=== PATIENT | male | born 1970 | race Caucasian/White ===

== ENCOUNTER 2022-05-21 08:53 | Day surgery (SDC) | payer BC ==
[~2022-05-21 08:53] MED LIST: Lactated Ringers 1,000 ML IV SCH; Sodium Chloride 0.9% 10 ML Syringe FLUSH PRN
[2022-05-21] MEDS ORDERED: Propofol 200 MG/20 ML SDV ONE (10:49)
[2022-05-21] MEDS ORDERED: fentaNYL 100 MCG/2 ML SDV ONE (10:49)
[2022-05-21] MEDS ORDERED: Simethicone Drops 40 MG/0.6 ML 30 ML Bottle ONE (10:59)
== END 2022-05-21 12:45 | disposition home or self-care (01) ==
LOC: VM.SDS 08:53
PROVIDERS: ATTEND Surgery
DX: Z12.11 Encounter for screening for malignant neoplasm of colon (principal); I10 Essential (primary) hypertension; E11.9 Type 2 diabetes mellitus without complications; E78.5 Hyperlipidemia, unspecified; M10.9 Gout, unspecified; E66.01 Morbid (severe) obesity due to excess calories; F17.220 Nicotine dependence, chewing tobacco, uncomplicated; Z68.41 Body mass index [BMI] 40.0-44.9, adult; Z79.899 Other long term (current) drug therapy; Z79.82 Long term (current) use of aspirin; Z79.84 Long term (current) use of oral hypoglycemic drugs; Z91.09 Other allergy status, other than to drugs and biological substances
CPT/HCPCS: 00812; 45378; 82947; A9270; J2704; J3010; J7120